=== PATIENT | male | born 1995 | race Caucasian/White ===

== ENCOUNTER 2019-10-17 19:12 | Emergency (ER) | payer OTHER, SELFPAY ==
--- NOTE | 2019-10-17 19:21 | ED.GENADULT ---
HPI - General Adult General Chief complaint: Extremity Injury, Lower Stated complaint: Bruise/Knot on left leg Time Seen by Provider: 10/17/19 19:27 Source: patient and RN notes reviewed Mode of arrival: ambulatory Limitations: no limitations History of Present Illness HPI narrative: 24-year-old male presents with concern for a nodule with bruising to his left lower leg. He denies injury, trauma. Reports tenderness at the nodule 3/10 pain. He denies claudication, erythema, edema. MD complaint: Nodule Related Data Home Medications Medication Instructions Recorded Confirmed No Home Medications 10/17/19 10/17/19 Allergies Allergy/AdvReac Type Severity Reaction Status Date / Time No Known Allergies Allergy Unknown Verified 10/17/19 19:32 Review of Systems Review of Systems: Narrative: CONSTITUTIONAL: Denies malaise, chills, sweats, or fever. CARDIOVASCULAR: Denies chest pain, palpitations, or edema. RESPIRATORY: Denies cough or dyspnea. SKIN: Reports bruising to left lower lateral leg with tender nodule MUSCULOSKELETAL: Denies myalgia. NEUROLOGIC: Denies numbness, weakness. All systems reviewed & are unremarkable except as noted in HPI and below PMFSH Social History Social History Gender identity (if verbalized by the patient): Male Comments At time of signature, agree with nursing past medical, surgical, social and family history. There is no relevant family history pertinent to the presenting complaint Exam Narrative: Exam Narrative: GENERAL: Well-appearing, well-nourished, and in no acute distress. HEAD: Normocephalic EYES: PERRLA, conjunctivae clear ENT: Mucous membranes moist. NECK: Supple. CHEST: No respiratory distress. Speaks in full sentences. HEART: Regular rate and rhythm. Normal peripheral pulses. EXTREMITIES: Left lower leg normal range of motion, no edema, normal strength and sensation. No left tenderness to knee, ankle, tibia/fibula. Normal knee and ankle range of motion. SKIN: Warm, dry, no rash. Healing mild ecchymosis approximately 20 cm x 15 cm. Soft slightly tender nodule noted to the left lateral lower leg NEURO: Alert and oriented x3. PSYCH: Normal mood and affect Course Course Emergency Course: Patient is aware of diagnosis, understands and agrees to treatment plan. Anticipatory guidance given. Patient agrees to follow-up as directed and is aware of reasons to seek care at the emergency department. Portions of this record may have been created with voice recognition software Vital Signs Vital signs: Vital Signs Temperature 98.8 F 10/17/19 19:25 Pulse Rate 72 10/17/19 19:25 Respiratory Rate 16 10/17/19 19:25 Blood Pressure 136/75 10/17/19 19:25 Pulse Oximetry 99 10/17/19 19:25 Temperature 98.8 F 10/17/19 19:25 Pulse Rate 72 10/17/19 19:25 Respiratory Rate 16 10/17/19 19:25 Blood Pressure 136/75 10/17/19 19:25 Pulse Oximetry 99 10/17/19 19:25 Reviewed. Medical Decision Making MDM Narrative Medical decision making narrative: Exam findings show no acute concerns or changes; patient is non-toxic appearing and is in no distress. Patient is appropriate for outpatient treatment and follow-up. Vital Signs Vital Signs: Vital Signs Temperature 98.8 F 10/17/19 19:25 Pulse Rate 72 10/17/19 19:25 Respiratory Rate 16 10/17/19 19:25 Blood Pressure 136/75 10/17/19 19:25 Pulse Oximetry 99 10/17/19 19:25 Temperature 98.8 F 10/17/19 19:25 Pulse Rate 72 10/17/19 19:25 Respiratory Rate 16 10/17/19 19:25 Blood Pressure 136/75 10/17/19 19:25 Pulse Oximetry 99 10/17/19 19:25 Lab Data Lab results narrative: DVT, cyst, cellulitis, fracture, sprain Critical Care Time Critical Care Time Critical Care Time: No Discharge Plan Discharge Clinical Impression: Nodule of skin of left lower leg Patient Disposition: Home, Self-Care Condition: Stable Instructions: Cyst (ED) Additional Instructions: 1)
[2019-10-17 19:25] VITALS: BP 136/75; PULSE 72; RESP 16; TEMP 37.1; O2SAT 99
== END 2019-10-17 19:37 | disposition home or self-care (01) ==
PROVIDERS: Emergency Provider Nurse Practitioner
DX: R22.9 Localized swelling, mass and lump, unspecified (principal)
CPT/HCPCS: 99211; G0463

== ENCOUNTER 2021-01-24 22:33 | Emergency (ER) | payer OTHER, SELFPAY ==
--- NOTE | ~2021-01-24 | XR_ITS ---
EXAMINATION: XR ankle LT min 3V DATE: 01/24/2021 22:49 INDICATION: Left ankle injury. TECHNIQUE: 4 views of left ankle were obtained. COMPARISON: Left foot radiographs 02/17/2019 FINDINGS: Bone alignment is normal. No fracture. Joint spaces are well maintained. There is ankle sof t tissue swelling. IMPRESSION: 1. No fracture. Reviewed, dictated and finalized at location A. IMPRESSION: 1. No fracture.
[2021-01-24 22:35] VITALS: BP 144/75; PULSE 113; RESP 20; TEMP 37.2; O2SAT 95
--- NOTE | 2021-01-24 22:52 | ED.LOWEXIN ---
HPI - Extremity Injury (Lower) General Chief Complaint: Extremity Injury, Lower Stated Complaint: left ankle pain Time Seen by Provider: 01/24/21 22:48 Source: RN notes reviewed History of Present Illness HPI Narrative: Patient presents to emergency department from home for left ankle pain. Patient states his pain [employer] last night when he rolled his left ankle she has had pain in the left ankle since that time over the lateral aspect with some swelling ecchymosis present. States it is painful to walk on he states he has been using Daniel wrap as well as using the crutches he has at home denies any other trauma or injury denies any numbness or tingling Related Data Allergies Allergy/AdvReac Type Severity Reaction Status Date / Time No Known Allergies Allergy Unknown Verified 01/24/21 22:37 Review of Systems Review of Systems: Narrative: Gen.: Denies fevers or chills Musculoskeletal: See HPI Neuro: Denies numbness, tingling, weakness Skin: Denies rash Endo: Denies DM PMFSH Past Medical History Medical History (Updated 01/24/21 @ 22:54 by Raymond Pedro DO) Patient denies significant medical history Social History Social History (Updated 01/24/21 @ 22:53 by Raymond Pedro DO) Smoking status: Never smoker Gender identity (if verbalized by the patient): Male Exam Narrative: Exam Narrative: APPEARANCE: No acute distress, nontoxic, resting in bed Eyes: EOMI HEENT: Normocephalic, atraumatic, RESPIRATORY: No respiratory distress MUSCULOSKELETAl: Turn palpation of the left lateral malleolus with swelling ecchymosis present no tenderness over the medial anterior ankle no tenderness of the proximal fibula or the base of the fifth metatarsal, dorsalis pedis pulse 2+ neurovascular intact NEURO: Awake and alert. Following commands, speech normal, no focal deficits SKIN:: Warm, dry. Normal Color no rash or lesions Course Course Emergency Course: Discussed with patient results of workup and diagnosis. Discussed need for follow-up with primary care, proper use of medication, and reasons to return to the emergency department. Patient understands and agrees to current treatment plan. Patient came with Daniel wrap on will continue use his Daniel wrap has crutches at home Vital Signs Vital signs: Vital Signs Temperature 99.0 F 01/24/21 22:35 Pulse Rate 113 H 01/24/21 22:35 Respiratory Rate 20 01/24/21 22:35 Blood Pressure 144/75 H 01/24/21 22:35 Pulse Oximetry 95 01/24/21 22:35 Temperature 99.0 F 01/24/21 22:35 Pulse Rate 113 H 01/24/21 22:35 Respiratory Rate 20 01/24/21 22:35 Blood Pressure 144/75 H 01/24/21 22:35 Pulse Oximetry 95 01/24/21 22:35 MDM - Extremity Injury (Lower) Imaging Data Radiologist's impression: ITS Impressions Ankle X-Ray 01/24/21 22:51 IMPRESSION: 1. No fracture. Discharge Plan Discharge Clinical Impression: Left ankle sprain Patient Disposition: Home, Self-Care Condition: Stable Instructions: Antibiotic Form, Ankle Sprain (ED), R.I.C.E. Treatment (ED) Additional Instructions: Return for increasing pain numbness or tingling in the extremities or any other symptoms of concern Prescriptions: New ibuprofen [IBU] 600 mg tablet 600 mg PO Q6H PRN (Reason: pain) Qty: 20 RF: 0 Follow-up/Referrals: Jose Farley MD [Physician] - (Follow-up in 1-2 days for further on-call physician treatment and evaluation) UNKNOWN,DOCTOR [Primary Care Provider] - Time of Disposition: 22:54
[2021-01-24] MEDS: IBUPROFEN 600 MG TABLET PO (23:08)
== END 2021-01-24 23:12 | disposition home or self-care (01) ==
LOC: ANHED 23:00
PROVIDERS: Emergency Provider Emergency Medicine
DX: S93.402A Sprain of unspecified ligament of left ankle, initial encounter (principal); X50.1XXA Overexertion from prolonged static or awkward postures, initial encounter; Y92.512 Supermarket, store or market as the place of occurrence of the external cause
CPT/HCPCS: 73610; 99283; A9270

== ENCOUNTER 2021-05-24 18:16 | Emergency (ER) | payer OTHER, SELFPAY ==
[2021-05-24 18:23] VITALS: BP 144/76; PULSE 62; RESP 16; TEMP 36.4; O2SAT 99
--- NOTE | 2021-05-24 18:23 | ED.EYEPROB ---
HPI - Eye Problem General Chief complaint: Eye Problems Stated complaint: right ye redness/painful Time Seen by Provider: 05/24/21 18:31 Source: patient and RN notes reviewed Mode of arrival: ambulatory Limitations: no limitations History of Present Illness HPI Narrative: 26-year-old male presents concern for right eye pain and redness. Her warts 2 days ago he was cutting a nail and something flew up and hit the corner of his eye. Reports on he woke up with eye pain and redness. Reports occasional watery discharge. Denies purulent discharge. Denies vision changes. Denies sense of foreign body. MD chief complaint: eye pain and eye redness Related Data Allergies Allergy/AdvReac Type Severity Reaction Status Date / Time No Known Allergies Allergy Unknown Verified 01/24/21 22:37 Review of Systems Review of Systems: CONSTITUTIONAL: Denies malaise, chills, sweats, or fever. EYES: Denies visual changes. Reports right eye pain, redness, occasional watery discharge. ENT: Denies rhinorrhea, congestion, sinus pain, otalgia or sore throat. SKIN: Denies rash or itching, denies lacerations or abrasions. NEUROLOGIC: Denies headache. All systems reviewed & are unremarkable except as noted in HPI and below PMFSH Past Medical History Medical History (Updated 05/24/21 @ 18:52 by Juanita Carcamo NP) Patient denies significant medical history Social History Social History (Updated 01/24/21 @ 22:53 by Raymond Pedro DO) Smoking status: Never smoker Gender identity (if verbalized by the patient): Male Comments At time of signature, agree with nursing past medical, surgical, social and family history. There is no relevant family history pertinent to the presenting complaint Exam Narrative: GENERAL: Well-appearing, well-nourished, and in no acute distress. HEAD: Normocephalic, atraumatic. EYES: PERRLA, left conjunctivae and sclera clear, and EOMI. No nystagmus. Right conjunctivae clear, sclera injected ENT: Nares clear. Mucous membranes moist. NECK: Supple. CHEST: No respiratory distress.Speaks in full sentences. HEART: Regular rate and rhythm. SKIN: Warm, dry, no visible rash. NEURO: Alert and oriented x3 PSYCH: Normal mood and affect Course Course Emergency Course: Patient is aware of diagnosis, understands and agrees to treatment plan. Anticipatory guidance given. Patient agrees to follow-up as directed and is aware of reasons to seek care at the emergency department. Portions of this record may have been created with voice recognition software Vital Signs Vital signs: Reviewed. Procedures Other Procedure Procedure 1: Other Procedure: Tetracaine 1 gtt instilled in right eye, fluorescein stain applied. No corneal abrasion noted upon lraa lamp. Eye washed with NS 100 ml. No foreign bodies or Lai sign noted. MDM - Eye Problem MDM Narrative Medical decision making narrative: Consideration of the following conditions may be warranted for the presenting problem, they are not final diagnoses: Bacterial conjunctivitis, allergic conjunctivitis, viral conjunctivitis, foreign body, blepharitis, chalazion, hordeolum, corneal abrasion, preseptal cellulitis, orbital cellulitis, uveitis. No evidence of proptosis, ophthalmoplegia, vision loss, pain with eye movement. Exam findings show no acute concerns or changes; patient is non-toxic appearing and is in no distress. Patient is appropriate for outpatient treatment and follow-up. Critical Care Time Critical Care Time Critical Care Time: No Discharge Plan Discharge Clinical Impression: Acute eye pain Patient Disposition: Home, Self-Care Condition: Stable Instructions: Eye Pain (ED) Additional Instructions: Do not touch or rub your eye. Use a cool washcloth on your eye for comfort Use eyedrops as directed You may take Tylenol or ibuprofen for pain Follow-up with network systems engineer in 2 to 3 days for further evaluation ([facility]
== END 2021-05-24 18:55 | disposition home or self-care (01) ==
PROVIDERS: Emergency Provider Nurse Practitioner
DX: H57.11 Ocular pain, right eye (principal)
CPT/HCPCS: 99213; A9270; G0463